=== PATIENT | male | born 1970 | race Caucasian/White ===

== ENCOUNTER 2017-12-26 10:27 | Emergency (ER) | payer OTHER ==
[2017-12-26] MEDS ORDERED: Sodium Chloride 0.9% 1000 ML 1,000 ML IV STA (10:46)
[2017-12-26] MEDS ORDERED: THIAMINE 200 MG/2 ML IV ONE (10:46)
[2017-12-26] MEDS ORDERED: Ativan 2 MG/1 ML VIAL IV ONE ×2 (10:46→13:50)
--- NOTE | 2017-12-26 10:46 | ERPHSYRPT ---
- History of Present Illness Time Seen by Provider: 12/26/17 10:42 Source: patient Exam Limitations: no limitations Patient Subjective Stated Complaint: HERE FOR ALCOHOL WITHGALLITO, STATES HAS BEEN DRINKING HEAVY FOR 2 WEEKS, FAST HEART RATE TODAY, SHAKY Triage Nursing Assessment: PT WALKED IN ALERT, ANXIOUS, SHAKING, RESP EASY, SKIN W/D/P Physician History: 47-year-old white male arrives with complaint that he thinks he is having alcohol withdrawal patient states that he has been having a rapid heart rate feels like he is withdrawing from alcohol states he has drank a fifth a day for a month last drink was yesterday morning. Patient states he is having rapid heart rate feel shaky. Past medical history includes rapid heart rate, high blood pressure. Past surgical history includes left shoulder replacement right foot and ankle surgery right wrist surgery finger surgery. Social history positive tobacco use, positive 1/5th day of alcohol for the past month, denies illicit drug use Timing/Duration: today Severity: moderate Modifying Factors: Improves With: nothing Associated Symptoms: other (feels shaky, rapid pulse), No nausea, No vomiting, No abdominal pain, No shortness of breath, No heartburn, No diaphoresis, No cough, No chills, No chest pain, No fever, No headaches, No loss of appetite, No malaise, No rash, No syncope, No seizure, No weakness Allergies/Adverse Reactions: Penicillins Allergy (Verified 12/26/17 10:31) Home Medications: Aspirin 81 gm Chew [Baby Aspirin 81 mg Chew] 81 mg DAILY 12/26/17 [History ] Diltiazem HCl [Diltiazem 24Hr ER] 180 mg DAILY 12/26/17 [History] Gabapentin 800 mg DAILY 12/26/17 [History] Lisinopril 5 mg DAILY 12/26/17 [History] Hx Tetanus, Diphtheria Vaccination/Date Given: No Hx Influenza Vaccination/Date Given: No Hx Pneumococcal Vaccination/Date Given: No Immunizations Up to Date: Yes - Review of Systems Constitutional: No Fever, No Chills Eyes: No Symptoms Ears, Nose, & Throat: No Symptoms Respiratory: No Cough, No Dyspnea Cardiac: Palpitations Abdominal/Gastrointestinal: No Abdominal Pain, No Nausea, No Vomiting, No Diarrhea Genitourinary Symptoms: No Dysuria Musculoskeletal: No Back Pain, No Neck Pain Skin: No Rash Neurological: No Dizziness, No Focal Weakness, No Sensory Changes Psychological: Alcohol Abuse, Anxiety, No Suicidal Ideations, No Homicidal Ideations Endocrine: No Symptoms All Other Systems: Reviewed and Negative - Past Medical History Pertinent Past Medical History: Yes Cardiac History: Arrhythmia, Hypertension - Past Surgical History Gastrointestinal: Appendectomy Musculoskeletal: Orthopedic Surgery - Social History Smoking Status: Never smoker Exposure to second hand smoke: Yes Drug Use: none Patient Lives Alone: No - Nursing Vital Signs Nursing Vital Signs: Initial Vital Signs Pulse Rate 102 H 12/26/17 10:46 Respiratory Rate 16 12/26/17 10:46 Blood Pressure 126/74 12/26/17 10:46 O2 Sat by Pulse Oximetry 97 12/26/17 10:46 Pain Scale Pain Intensity 0 - Physical Exam General Appearance: mild distress, anxiety Eye Exam: PERRL/EOMI, eyes nml inspection Ears, Nose, Throat Exam: normal ENT inspection, TMs normal, pharynx normal, moist mucous membranes Neck Exam: normal inspection, non-tender, supple, full range of motion Respiratory Exam: normal breath sounds, lungs clear, No respiratory distress Cardiovascular Exam: normal peripheral pulses, tachycardia, capillary refill <2 sec, No murmur, No friction rub, No gallop, No bradycardia, No irregular Gastrointestinal/Abdomen Exam: soft, normal bowel sounds, No tenderness, No mass Back Exam: normal inspection, normal range of motion, No CVA tenderness, No vertebral tenderness Extremity Exam: normal inspection, normal range of motion, pelvis stable Neurologic Exam: alert, oriented x 3, cooperative, stockroom associate II-XII nml as tested, normal mood/affect, nml cerebellar function, nml station & gait, sensation nml, No motor deficits Skin Exam: normal color, warm, dry, No rash Lymphatic Exam: No adenopathy SpO2 Interpretation: normal (97%), borderline oxygenation - Course Nursing assessment & vital signs reviewed: Yes EKG Interpreted by Me: RATE (106 bpm), Sinus Tach, NORMAL AXIS, Other (EKG: Sinus tachycardia, 106 beats per minute, normal axis, no acute ST or T wave changes essentially normal EKG) Ordered Tests: Active Orders 24 hr Category Date Time Status EKG-ER Only STAT Care 12/26/17 10:46 Active IV Insertion STAT Care 12/26/17 10:46 Active Regular Diet Diet 12/26/17 Dinner Active ACETAMINOPHEN Stat Lab 12/26/17 10:50 Completed AMYLASE Stat Lab 12/26/17 10:50 Completed CBC W DIFF Stat Lab 12/26/17 10:50 Completed CMP Stat Lab 12/26/17 10:50 Completed CULTURE,URINE Stat Lab 12/26/17 11:30 Received ETHYL ALCOHOL Stat Lab 12/26/17 10:50 Completed ETHYL ALCOHOL Stat Lab 12/26/17 14:05 Completed LIPASE Stat Lab 12/26/17 10:50 Completed SALICYLATE Stat Lab 12/26/17 10:50 Completed TROPONIN Q3H Lab 12/26/17 10:50 Completed TROPONIN Q3H Lab 12/26/17 14:05 Completed TROPONIN Q3H Lab 12/26/17 17:00 Ordered TROPONIN Q3H Lab 12/26/17 20:00 Ordered TROPONIN Q3H Lab 12/26/17 23:00 Ordered UA W/RFX UR CULTURE Stat Lab 12/26/17 11:30 Completed Urine Triage Profile Stat Lab 12/26/17 11:06 Completed Medication Summary Discontinued Medications Generic Name Dose Route Start Last Admin Trade Name Dennyq PRN Reason Stop Dose Admin Sodium Chloride 1,000 mls @ 999 mls/hr 12/26/17 10:46 12/26/17 13:16 Sodium Chloride 0.9% 1000 Ml IV 12/26/17 11:46 Infused .Q1H1M STA Infusion Sodium Chloride Confirm 12/26/17 10:54 Sodium Chloride 0.9% 1000 Ml Administered 12/26/17 10:55 Dose 1,000 mls @ ud .ROUTE .STK-MED ONE Lorazepam 1 mg 12/26/17 10:46 12/26/17 10:58 Ativan 2 Mg/1 Ml Vial IV 12/26/17 10:47 1 mg STAT ONE Administration Lorazepam Confirm 12/26/17 10:54 Ativan 2 Mg/1 Ml Vial Administered 12/26/17 10:55 Dose 2 mg .ROUTE .STK-MED ONE Lorazepam 1 mg 12/26/17 13:50 12/26/17 13:54 Ativan 2 Mg/1 Ml Vial IV 12/26/17 13:51 1 mg STAT ONE Administration Lorazepam Confirm 12/26/17 13:53 Ativan 2 Mg/1 Ml Vial Administered 12/26/17 13:54 Dose 2 mg .ROUTE .STK-MED ONE Thiamine HCl 100 mg 12/26/17 10:46 12/26/17 10:58 Thiamine 200 Mg/2 Ml IV 12/26/17 10:47 100 mg STAT ONE Administration Thiamine HCl Confirm 12/26/17 10:53 Thiamine 200 Mg/2 Ml Administered 12/26/17 10:54 Dose 200 mg .ROUTE .STK-MED ONE Lab/Rad Data: Laboratory Result Diagrams 12/26/17 10:50 12/26/17 10:50 Laboratory Results 12/26/17 12/26/17 12/26/17 Range/Units 14:05 14:05 11:30 WBC (4.0-10.5) K/mm3 RBC (4.1-5.6) M/mm3 Hgb (12.5-18.0) gm/dl Hct (42-50) % MCV (78-100) fl MCH (26-32) pg MCHC (32-36) g/dl RDW (11.5-14.0) % Plt Count (150-450) K/mm3 MPV (6-9.5) fl Gran % (36.0-66.0) % Eos # (Auto) (0-0.5) Absolute Lymphs (auto) (1.0-4.6) Absolute Monos (auto) (0.0-1.3) Lymphocytes % (24.0-44.0) % Monocytes % (0.0-12.0) % Eosinophils % (0.00-5.0) % Basophils % (0.0-0.4) % Absolute Granulocytes (1.4-6.9) Basophils # (0-0.4) Sodium (137-145) mmol/L Potassium (3.5-5.1) mmol/L Chloride (98-107) mmol/L Carbon Dioxide (22-30) mmol/L Anion Gap (5-15) MEQ/L BUN (9-20) mg/dL Creatinine (0.66-1.25) mg/dL Estimated GFR ML/MIN Glucose (74-106) mg/dL Calcium (8.4-10.2) mg/dL Total Bilirubin (0.2-1.3) mg/dL AST (17-59) U/L ALT (0-50) U/L Alkaline Phosphatase (38-126) U/L Troponin I < 0.012 (0.000-0.034) ng/mL Serum Total Protein (6.3-8.2) g/dL Albumin (3.5-5.0) g/dL Amylase (30-110) U/L Lipase (23-300) U/L Urine Color YELLOW (YELLOW) Urine Appearance SLIGHTLY CLOUDY (CLEAR) Urine pH 7.0 (5-6) Ur Specific Conway 1.025 (1.005-1.025) Urine Protein 100 (Negative) Urine Ketones SMALL (NEGATIVE) Urine Blood NEGATIVE (0-5) David/ul Urine Nitrite NEGATIVE (NEGATIVE) Urine Bilirubin NEGATIVE (NEGATIVE) Urine Urobilinogen 2 (0-1) mg/dL Ur Leukocyte Esterase NEGATIVE (NEGATIVE) Urine WBC (Auto) 0-2 (0-5) /HPF U Hyaline Cast (Auto) 6-10 (0-2) /LPF U Epithel Cells (Auto) RARE (FEW) /HPF Other Casts (Auto) NEGATIVE (NEGATIVE) /LPF Urine Mucus (Auto) SLIGHT (NEGATIVE) /HPF Urine Culture Reflexed NO (NO) Urine Glucose 50 (NEGATIVE) mg/dL Salicylates (2-20) mg/dL Urine Opiates Level (NEGATIVE) Ur Methadone (NEGATIVE) Acetaminophen (10-30) ug/ml Urine Barbiturates (NEGATIVE) Ur Phencyclidine (PCP) (NEGATIVE) Urine Amphetamine (NEGATIVE) U Benzodiazepine Level (NEGATIVE) Urine Cocaine (NEGATIVE) Urine Marijuana (THC) (NEGATIVE) Ethyl Alcohol < 10 (0-10) mg/dL 12/26/17 12/26/17 12/26/17 Range/Units 11:06 10:50 10:50 WBC (4.0-10.5) K/mm3 RBC (4.1-5.6) M/mm3 Hgb (12.5-18.0) gm/dl Hct (42-50) % MCV (78-100) fl MCH (26-32) pg MCHC (32-36) g/dl RDW (11.5-14.0) % Plt Count (150-450) K/mm3 MPV (6-9.5) fl Gran % (36.0-66.0) % Eos # (Auto) (0-0.5) Absolute Lymphs (auto) (1.0-4.6) Absolute Monos (auto) (0.0-1.3) Lymphocytes % (24.0-44.0) % Monocytes % (0.0-12.0) % Eosinophils % (0.00-5.0) % Basophils % (0.0-0.4) % Absolute Granulocytes (1.4-6.9) Basophils # (0-0.4) Sodium 138 (137-145) mmol/L Potassium 3.8 (3.5-5.1) mmol/L Chloride 101 (98-107) mmol/L Carbon Dioxide 20 L (22-30) mmol/L Anion Gap 21.0 H (5-15) MEQ/L BUN 11 (9-20) mg/dL Creatinine 0.80 (0.66-1.25) mg/dL Estimated GFR > 60.0 ML/MIN Glucose 114 H (74-106) mg/dL Calcium 9.6 (8.4-10.2) mg/dL Total Bilirubin 0.80 (0.2-1.3) mg/dL AST 94 H (17-59) U/L ALT 94 H (0-50) U/L Alkaline Phosphatase 112 (38-126) U/L Troponin I < 0.012 (0.000-0.034) ng/mL Serum Total Protein 7.9 (6.3-8.2) g/dL Albumin 4.6 (3.5-5.0) g/dL Amylase 108 (30-110) U/L Lipase 147 (23-300) U/L Urine Color (YELLOW) Urine Appearance (CLEAR) Urine pH (5-6) Ur Specific Conway (1.005-1.025) Urine Protein (Negative) Urine Ketones (NEGATIVE) Urine Blood (0-5) David/ul Urine Nitrite (NEGATIVE) Urine Bilirubin (NEGATIVE) Urine Urobilinogen (0-1) mg/dL Ur Leukocyte Esterase (NEGATIVE) Urine WBC (Auto) (0-5) /HPF U Hyaline Cast (Auto) (0-2) /LPF U Epithel Cells (Auto) (FEW) /HPF Other Casts (Auto) (NEGATIVE) /LPF Urine Mucus (Auto) (NEGATIVE) /HPF Urine Culture Reflexed (NO) Urine Glucose (NEGATIVE) mg/dL Salicylates < 1.0 L (2-20) mg/dL Urine Opiates Level NEGATIVE (NEGATIVE) Ur Methadone NEGATIVE (NEGATIVE) Acetaminophen < 10 L (10-30) ug/ml Urine Barbiturates NEGATIVE (NEGATIVE) Ur Phencyclidine (PCP) NEGATIVE (NEGATIVE) Urine Amphetamine POSITIVE (NEGATIVE) U Benzodiazepine Level NEGATIVE (NEGATIVE) Urine Cocaine NEGATIVE (NEGATIVE) Urine Marijuana (THC) NEGATIVE (NEGATIVE) Ethyl Alcohol 19 H (0-10) mg/dL 12/26/17 Range/Units 10:50 WBC 6.0 (4.0-10.5) K/mm3 RBC 5.06 (4.1-5.6) M/mm3 Hgb 16.8 (12.5-18.0) gm/dl Hct 48.4 (42-50) % MCV 95.7 (78-100) fl MCH 33.2 H (26-32) pg MCHC 34.7 (32-36) g/dl RDW 14.8 H (11.5-14.0) % Plt Count 302 (150-450) K/mm3 MPV 10.1 H (6-9.5) fl Gran % 48.6 (36.0-66.0) % Eos # (Auto) 0.15 (0-0.5) Absolute Lymphs (auto) 2.22 (1.0-4.6) Absolute Monos (auto) 0.70 (0.0-1.3) Lymphocytes % 36.8 (24.0-44.0) % Monocytes % 11.6 (0.0-12.0) % Eosinophils % 2.5 (0.00-5.0) % Basophils % 0.5 (0.0-0.4) % Absolute Granulocytes 2.94 (1.4-6.9) Basophils # 0.03 (0-0.4) Sodium (137-145) mmol/L Potassium (3.5-5.1) mmol/L Chloride (98-107) mmol/L Carbon Dioxide (22-30) mmol/L Anion Gap (5-15) MEQ/L BUN (9-20) mg/dL Creatinine (0.66-1.25) mg/dL Estimated GFR ML/MIN Glucose (74-106) mg/dL Calcium (8.4-10.2) mg/dL Total Bilirubin (0.2-1.3) mg/dL AST (17-59) U/L ALT (0-50) U/L Alkaline Phosphatase (38-126) U/L Troponin I (0.000-0.034) ng/mL Serum Total Protein (6.3-8.2) g/dL Albumin (3.5-5.0) g/dL Amylase (30-110) U/L Lipase (23-300) U/L Urine Color (YELLOW) Urine Appearance (CLEAR) Urine pH (5-6) Ur Specific Conway (1.005-1.025) Urine Protein (Negative) Urine Ketones (NEGATIVE) Urine Blood (0-5) David/ul Urine Nitrite (NEGATIVE) Urine Bilirubin (NEGATIVE) Urine Urobilinogen (0-1) mg/dL Ur Leukocyte Esterase (NEGATIVE) Urine WBC (Auto) (0-5) /HPF U Hyaline Cast (Auto) (0-2) /LPF U Epithel Cells (Auto) (FEW) /HPF Other Casts (Auto) (NEGATIVE) /LPF Urine Mucus (Auto) (NEGATIVE) /HPF Urine Culture Reflexed (NO) Urine Glucose (NEGATIVE) mg/dL Salicylates (2-20) mg/dL Urine Opiates Level (NEGATIVE) Ur Methadone (NEGATIVE) Acetaminophen (10-30) ug/ml Urine Barbiturates (NEGATIVE) Ur Phencyclidine (PCP) (NEGATIVE) Urine Amphetamine (NEGATIVE) U Benzodiazepine Level (NEGATIVE) Urine Cocaine (NEGATIVE) Urine Marijuana (THC) (NEGATIVE) Ethyl Alcohol (0-10) mg/dL - Progress Progress: improved Progress Note: 12/26/17 12:03 47-year-old white male arrives with complaint that he feels like he is withdrawing from alcohol. States he's been drinking a fifth of alcohol a day for one month. He had mild tachycardia on arrival blood pressure stable vitals are stable. Patient feeling better after 1 mg of Ativan IV states he still feels a little jittery. Patient does have a blood alcohol of 19 mg/dl The area patient also positive for amphetamines in his bloodstream he is not sure him where got amphetamines. patient states that maybe a democrat this weekend. Patient apparently had been in [facility] for alcoholism in June of this year, he is requesting the possible placement at [facility] . Will ask the nurse to contact [facility]. 12/26/17 12:05 12/26/17 12:07 12/26/17 16:10 [facility] was contacted. Patient is to be released May follow-up with [facility] outpatient services tomorrow. Will write for a few Ativan tablets. Patient actually has been quite stable since arrival he has received total of 2 mg of Ativan and 1 L of normal saline. - Departure Time of Disposition: 16:11 Departure Disposition: Home Clinical Impression: mild alcohol withdrawal symptoms, Positive urine drug screen Alcohol dependence Qualifiers: Substance use status: in withdrawal Complication of substance-induced condition : with unspecified complication Qualified Code(s): F10.239 - Alcohol dependence with withdrawal, unspecified Condition: Fair Critical Care Time: No Referrals: DOCTOR,NO FAMILY [Primary Care Provider] - Additional Instructions: Return home. No drinking.(alcohol) No driving. Follow-up with Dulce Dumont at [facility] outpatient services tomorrow. Ativan 1 mg # 4 1 orally 3 times a day as needed for anxiety. Return for acute distress or for severe symptoms. Prescriptions: Lorazepam 1 mg [Ativan 1 MG] 1 mg PO TIDPRN #4 tablet
[2017-12-26] MEDS ORDERED: THIAMINE 200 MG/2 ML ONE (10:53)
[2017-12-26] MEDS ORDERED: Ativan 2 MG/1 ML VIAL ONE ×2 (10:54→13:53)
[2017-12-26] MEDS ORDERED: Sodium Chloride 0.9% 1000 ML 1,000 ML ONE (10:54)
[2017-12-26 11:09] LABS: BASOPHIL % 0.5 % (0.0-0.4); Basophil (Absolute #) 0.03 (0-0.4); Eosinophil % 2.5 % (0.00-5.0); Eosinophil (Absolute #) 0.15 (0-0.5); Granulocyte Absolute (ANC) 2.94 (1.4-6.9); Granulocytes % 48.6 % (36.0-66.0); Hematocrit 48.4 % (42-50); Hemoglobin 16.8 gm/dl (12.5-18.0); Lymphocyte (Absolute #) 2.22 (1.0-4.6); Lymphocytes % 36.8 % (24.0-44.0); Mean Cell Volume 95.7 fl (78-100); Mean Corpuscular Hemoglobin 33.2 pg (26-32); Mean Corpuscular Hgb Concent. 34.7 g/dl (32-36); Mean Platelet Volume 10.1 fl (6-9.5); Monocytes % 11.6 % (0.0-12.0); Platelet Count 302 K/mm3 (150-450); Red Blood Count 5.06 M/mm3 (4.1-5.6); Red Cell Distribution Width 14.8 % (11.5-14.0)
[2017-12-26 11:18] LABS: ALBUMIN 4.6 g/dL (3.5-5.0); ALKALINE PHOSPHATASE 112 U/L (38-126); AMYLASE 108 U/L (30-110); BLOOD UREA NITROGEN 11 mg/dL (9-20); CHLORIDE 101 mmol/L (98-107); Calcium 9.6 mg/dL (8.4-10.2); Carbon Dioxide 20 mmol/L (22-30); ETHYL ALCOHOL 19 mg/dL (0-10); Glucose 114 mg/dL (74-106); LIPASE 147 U/L (23-300); Potassium 3.8 mmol/L (3.5-5.1); SGOT/AST 94 U/L (17-59); SGPT/ALT 94 U/L (0-50); SODIUM 138 mmol/L (137-145); Total Protein 7.9 g/dL (6.3-8.2)
[2017-12-26 11:19] LABS: ACETAMINOPHEN < 10 ug/ml (10-30); SALICYLATE < 1.0 mg/dL (2-20)
[2017-12-26 11:27] LABS: Amphetamine,Urine POSITIVE (NEGATIVE); Barbiturate,Urine NEGATIVE (NEGATIVE); Benzodiazepine,Urine NEGATIVE (NEGATIVE); Cocaine,Urine NEGATIVE (NEGATIVE); Methadone,Urine NEGATIVE (NEGATIVE); Opiate,Urine NEGATIVE (NEGATIVE); PCP,Urine NEGATIVE (NEGATIVE); THC,Urine NEGATIVE (NEGATIVE)
[2017-12-26 11:38] LABS: Appearance SLIGHTLY CLOUDY (CLEAR); Bilirubin NEGATIVE (NEGATIVE); Blood NEGATIVE Ery/ul (0-5); Glucose 50 mg/dL (NEGATIVE); Ketones SMALL (NEGATIVE); Leukocyte Esterase NEGATIVE (NEGATIVE); Nitrite NEGATIVE (NEGATIVE); Protein,Urine Dip 100 (Negative); Specific Gravity 1.025 (1.005-1.025); Urobilinogen 2 mg/dL (0-1)
[2017-12-26 15:33] VITALS: BP 125/76; PULSE 84; O2SAT 98
== END 2017-12-26 17:18 | disposition home or self-care (01) ==
LOC: ED 10:27
DX: F10.239 Alcohol dependence with withdrawal, unspecified (principal); R78.4 Finding of other drugs of addictive potential in blood; R00.0 Tachycardia, unspecified; Z79.899 Other long term (current) drug therapy
CPT/HCPCS: 36000; 36415; 80053; 80307; 81001; 82150; 83690; 84484; 85025; 93005; 96360; 96374; 96375; 96376; 99284; G0481; 87086; J2060; G0480